=== PATIENT | male | born 1985 | race African-American/Black ===

== ENCOUNTER 2022-05-31 08:28 | Emergency (ER) | payer MEDICAID, OTHER ==
[~2022-05-31] VITALS: Ht 175.3 cm; Wt 109.0 kg
[2022-05-31 09:07] VITALS: BP 123/72
[2022-05-31] MEDS ORDERED: KETOROLAC TROMETH 30 MG/ML 1ML VIAL IM ONE (10:00)
[2022-05-31] MEDS ORDERED: CYCL-839 PO (10:04)
[2022-05-31] MEDS ORDERED: IBUP600T28 PO (10:04)
== END 2022-05-31 10:23 | disposition home or self-care (01) ==
LOC: ER 08:28
DX: S20.20XA Contusion of thorax, unspecified, initial encounter (principal); W18.39XA Other fall on same level, initial encounter; Y93.89 Activity, other specified; Y92.89 Other specified places as the place of occurrence of the external cause; Y99.8 Other external cause status
CPT/HCPCS: 71101; 96372; 99283; J1885